=== PATIENT | female | born 1945 | race Caucasian/White ===

== ENCOUNTER 2019-05-09 08:37 | Inpatient (IN) | payer OTHER, MEDICAID ==
[~2019-05-09] VITALS: Ht 165.1 cm; Wt 88.5 kg
[~2019-05-09 08:37] MED LIST: GLU10XL PO; GLU850 PO; LOSARTAN POTASS50 M1 PO
[2019-05-09 09:14] VITALS: BP 165/88
[2019-05-09] MEDS ORDERED: LOSARTAN POTASS1 TAB PO (10:46)
--- NOTE | 2019-05-09 15:45 | NUR ---
RECEIVED PT VIA GUERNEY FROM O/R, ACCOMPANIED BY RN. PT A/A/O X 4, CALM, COOPERATIVE; ROMANIAN-SPEAKING ONLY, AALIYAH AUSTIN, BY BEDSIDE FOR TRANSLATION. DENIES CHEST PAIN OR DISCOMFORT AT THIS TIME. NO ACUTE RESPIRATORY DISTRESS NOTED; ON 2LNC FOR COMFORT, O2 SAT 95%. ON F/C FOR SKIN MANAGEMENT/PT COMFORT, 16FR, INSTALLED 05/09/19, DRAINING CLEAR YELLOW URINE. PT IS S/P LTKR 05/09/19; L KNEE W/ INCISION, SUTURES, DERMABOND, MEPILEX, DARRON WRAP, POLAR CARE DEVICE, AND ALL SECURED BY DARRON WRAP; FALL RISK PROTOCOL IN PLACE. IV SITE LFA 22G, CDI. ORIENTED PT TO ROOM, BED CONTROLS, CALL LIGHT SYSTEM. SIDE RAILS UP X 2, BED IN LOW POSITION. WILL CONTINUE TO MONITOR.
--- NOTE | 2019-05-09 16:55 | NUR ---
PT C/O INTERMITTENT THROBBING L KNEE PAIN; PT REPOSITIONED, GIVEN NORCO 5/325MG 2 TABS; INSTRUCTED PT TO LET STAFF KNOW WHEN PAIN IS INCREASING TO PREVENT SEVERE PAIN. PT VERBALIZED UNDERSTANDING. WILL CONTINUE TO MONITOR.
[2019-05-09 18:05] VITALS: BP 133/72
--- NOTE | 2019-05-09 18:20 | NUR ---
PT IN BED, WATCHING TV, DAUGHTER BY BEDSIDE. PT REMAINS A/A/O X 4, CALM, COOPERATIVE. NO C/O PAIN TO L KNEE, REMAINS ON POLAR CARE DEVICE, CDI. NO RESPIRATORY DISTRESS, PAIN, OR DISCOMFORT NOTED. SIDE RAILS UP X 2, BED IN LOW POSITION. WILL ENDORSE TO NOC SHIFT.
--- NOTE | 2019-05-09 18:30 | NUR ---
PT AND PT'S MOTHER GIVEN DISCHARGE PACKET. DISCUSSED CURRENT STAY, INCLUDING MEDS, LABS, PROCEDURES DONE, AND TEACHINGS RE: APPENDICITIS, FEVER, APPENDECTOMY, DIET, AND EXERCISE. ALL QUESTIONS WERE ANSWERED, AND PT VERBALIZED UNDERSTANDING. ALL D/C FORMS SIGNED BY MOTHER. ID BANDS REMOVED, IV REMOVED FROM RAC 20G, CATH TIP INTACT, SITE NO S/S INFECTION OR BLEEDING. PT THEN AMBULATED DOWN TO LOBBY, ACCOMPANIED BY WATER LEAK REPAIRER AND PT'S FAMILY MEMBERS. PT A/A/O X 4, CALM, COOPERATIVE. NO GAIT OR BALANCE IMPAIRMENT NOTED. NO RESPIRATORY DISTRESS, PAIN, OR DISCOMFORT.
--- NOTE | 2019-05-09 19:49 | NUR ---
RECEIVED PT FROM DAY SHIFT RN. PT IS ALERT AND ORIENTED. MALTESE SPEAKING AND CURRENTLY RESTING IN BED WITH DAUGHTER AT THE BEDSIDE. PT CURRENTLY DENIES CHEST PAIN OR SHORTNESS OF BREATH ON 2L NASAL CANULA. CHEST EXPANSION SYMMETRICAL AND PT HAS NO LABORED BREATHING. PT IS CURRENTLY MED SURG. PT DENIES PAIN ATR THIS TIME AFTER RECEIVING NORCO BY THE DAY AHIFT RN. L KNEE DRESSING IS CLEAN DRY AND INTACT AT THIS TIME. NS CURRENTLY RUNNIGN THROUGH A 22G LEFT FOREARM IV. CLEAN DRY AND INTACT AT THIS TIME. SAFETY MEASURES ARE IN PLACE BED IN THE LOWEST POSITION. CALL LIGHT WITHIN REACH. WILL CONTINUE TO MONITOR PT.
[2019-05-09 20:36] VITALS: BP 125/59
--- NOTE | 2019-05-10 02:28 | NUR ---
PT RESTING IN BED AT THIS TIME. NO COMPLAINTS OF PAIN. NO DISTRESS NOTED AT THIS TIME. WILL CONTINUE TO MONITOR.
[2019-05-10 05:15] VITALS: BP 110/51
[2019-05-10 06:06] LABS: BASOPHIL % 1.2 % (0-2); PLATELET COUNT 258 x10^3mcL (130-400); RED CELL DISTRIBUTION WIDTH 13.9 % (11.5-14.5)
--- NOTE | 2019-05-10 06:18 | NUR ---
DC'D PENA CATHETER WITH 300ML OF RESIDUAL URINE (YELLOW) LEFT IN CONTAINER. PT TOLERATED PROCEDURE WELL. NO COMPLAINTS OF PAIN. INSTRUCTED PT TO CALL FOR ASSISTANCE WHEN NEEDING TO USE THE RESTROOM.
[2019-05-10 06:22] LABS: CALCIUM 8.7 mg/dL (8.5-10.1); CARBON DIOXIDE 26.3 mmol/L (21-32); CHLORIDE SERUM 103 mmol/L (98-107); CREATININE SERUM 0.7 mg/dL (0.6-1.0); GLUCOSE SERUM 130 mg/dL (74-106); POTASSIUM SERUM 4.1 mmol/L (3.5-5.1); SODIUM SERUM 140 mmol/L (136-145)
[2019-05-10 07:45] VITALS: BP 119/62
--- NOTE | 2019-05-10 08:02 | NUR ---
RECEIVED PATIENT FROM ABIOLA COPPOLA. PATIENT IN BED, STATES MILD PAIN TO L KNEE D/T POST OP SURGERY. SPOKE WITH PATIENT ABOUT PLAN OF CARE FOR TODAY, PATIENT AGREES. PT TAHIR CHECKED IN W PATIENT, PATIENT STATES SHE WOULD LIKE PT AFTER MEALS. WILL CONTINUE TO MONITOR, CALL LIGHT IN REACH.
--- NOTE | 2019-05-10 08:12 | NUR ---
SPOKE W DR TORRES IN [facility] ABOUT PATIENT STATUS. STATES PATIENT WILL BE ALLOWED TO GO HOME TODAY AFTER PM PT SESSION. [facility] PRESCRIPTIONS AND HOME PT HAS BEEN BEEN ARRANGED. WILL LET CHARGE NURSE MIGUEL KNOW. CALL LIGHT IN REACH AT THIS TIME.
[2019-05-10] MEDS ORDERED: ACETAMINOPHEN-H1 TA1 PO (08:14)
[2019-05-10] MEDS ORDERED: COL100 PO (08:15)
--- NOTE | 2019-05-10 12:20 | NUR ---
PATIENT RESTING IN BED, NO COMPLAINTS OF LEG PAIN AT THIS TIME. BS CHECK REQUESTED BY PATIENT PRIOR TO PO METFORMIN ADMINISTRATION. BS WAS 126. WILL CONTINUE TO MONITOR FOR LEG PAIN, CALL LIGHT IN REACH AT THIS TIME.
[2019-05-10 12:41] VITALS: BP 119/62
[2019-05-10] MEDS ORDERED: ECO81 PO (12:45)
--- NOTE | 2019-05-10 16:02 | NUR ---
DISCHARGE INSTRUCTIONS EXPLAINED TO PATIENT SON & DAUGHTER. ALL QUESTIONS ANSWERED. AWARE TO FU WITH SURGEON AND PCP. PRESCRIPTIONS ALREADY GIVEN TO PATIENT DAUGHTER BY DR TORRES, STATES SHE "GOT IT LAST WEDNESDAY". IV CATHETER REMOVED AND INTACT. PATIENT WITH FAMILY AND BELONGINGS, AND FWW, ESCORTED DOWNSTAIRS VIA WHEELCHAIR WITH NA PAT. SIGNATURES OBTAINED.
== END 2019-05-10 16:05 | disposition home or self-care (01) | DRG 470 ==
LOC: MU 08:37 → DU 10:30 → MU 16:16
PROVIDERS: ADMIT Orthopaedic Surgery
PROC: 0SRD0J9 Replacement of Left Knee Joint with Synthetic Substitute, Cemented, Open Approach (ICD-10-PCS; principal; 2019-05-09 10:30)
DX: M17.12 Unilateral primary osteoarthritis, left knee (principal); I10 Essential (primary) hypertension; E11.9 Type 2 diabetes mellitus without complications; M17.0 Bilateral primary osteoarthritis of knee; Z90.710 Acquired absence of both cervix and uterus; Z79.82 Long term (current) use of aspirin
CPT/HCPCS: 82962; 97116-GP; 97530-GP; C1713; C1776; G0378; J0690; J1100; J1885; J2270; J2704; J3010; J3490; J7030; Q0092